=== PATIENT | male | born 1965 | race Asian ===

== ENCOUNTER 2022-10-25 12:27 | Inpatient (IN) | payer MEDICARE ==
[~2022-10-25] VITALS: Ht 170.2 cm; Wt 69.6 kg
[2022-10-25] MEDS ORDERED: APIX5TAB PO (12:31)
[2022-10-25] MEDS ORDERED: ISOS30TA92 PO (12:35)
[2022-10-25] MEDS ORDERED: FURO40 PO (12:35)
[2022-10-25] MEDS ORDERED: RANO500T27 PO (12:35)
[2022-10-25] MEDS ORDERED: CLOP75TA60 PO (12:35)
[2022-10-25] MEDS ORDERED: GLIP-102 PO (12:35)
[2022-10-25] MEDS ORDERED: ALLO-97 PO (12:35)
[2022-10-25] MEDS ORDERED: SODI650T33 PO (12:35)
[2022-10-25] MEDS ORDERED: METO-558 PO (12:35)
[2022-10-25] MEDS ORDERED: SENN-376 PO (12:35)
[2022-10-25] MEDS ORDERED: [UNRECOGNIZED DRUG - CODE] PO (12:36)
[2022-10-25] MEDS ORDERED: ROSU20TA73 PO (12:36)
[2022-10-25] MEDS ORDERED: CHOL25TA4 PO (12:36)
[2022-10-25] MEDS ORDERED: DOPamine 400MG/D5W[STANDARD] 250 ML IV PRN (12:45)
[2022-10-25] MEDS ORDERED: DOPamine 400MG/D5W[STANDARD] 250 ML IV ONE (12:47)
[2022-10-25 12:53] LABS: BASOPHILS % (AUTO) 0.9 % (0.0-2.0); EOSINOPHILS % (AUTO) 2.9 % (1.0-6.0); HEMATOCRIT 27.2 % (41-53); LYMPHOCYTES # (AUTO) 1.9 K/uL (1.0-4.8); LYMPHOCYTES % (AUTO) 24.2 % (22.0-44.0); MEAN CORPUSCULAR HEMOGLOBIN 28.6 pg (26.0-34.0); MEAN CORPUSCULAR VOLUME 87 fL (80-100); MONOCYTES # (AUTO) 0.5 K/uL (0.1-1.0); MONOCYTES % (AUTO) 6.7 % (2.0-9.0); NEUTROPHILS % (AUTO) 65.3 % (40.0-70.0); PLATELET COUNT (AUTO) 333 K/uL (150-450); RED BLOOD CELL COUNT(AUTO) 3.14 MIL/uL (4.50-5.90); RED CELL DISTRIBUTION WIDTH 14.1 % (11.5-14.5)
[2022-10-25 13:11] LABS: INR 1.1 (0.9-1.1); PROTHROMBIN TIME 11.3 SEC (9.4-11.6)
[2022-10-25 13:24] LABS: ALBUMIN 2.2 g/dL (3.4-5.0); BILIRUBIN,TOTAL 0.3 mg/dL (0.1-1.0); CALCIUM, TOTAL 7.2 mg/dL (8.8-10.5); CREATININE 8.38 mg/dL (0.60-1.30); TOTAL PROTEIN, SERUM 6.2 g/dL (6.4-8.2)
[2022-10-25] MEDS ORDERED: BISACODYL 10 MG RECTAL RECTAL SUPPOSITORY PR PRN (13:45)
[2022-10-25] MEDS ORDERED: CALCIUM GLUCONATE 1,000 MG in DEXTROSE 5%-WATER 50 ML IV ONE (13:45)
[2022-10-25] MEDS ORDERED: MORPHINE SULFATE 2 MG/ML SYRINGE IVP PRN (13:45)
[2022-10-25] MEDS ORDERED: ZOLPIDEM TARTRATE 5 MG TABLET PO PRN (13:45)
[2022-10-25] MEDS ORDERED: MAGNESIUM HYDROXIDE SUSPENSION 30 ML UDCUP PO PRN (13:45)
[2022-10-25] MEDS ORDERED: HYDROCODONE/ACETAMINOPHEN 5-325 MG TABLET PO PRN (13:45)
[2022-10-25] MEDS ORDERED: ONDANSETRON HCL 4 MG/2 ML VIAL IVP PRN (13:45)
[2022-10-25] MEDS ORDERED: ACETAMINOPHEN 325 MG TABLET PO PRN (13:45)
[2022-10-25] MEDS ORDERED: SODIUM ZIRCONIUM CYCLOSILICATE 5 GM POWDER PACKET PO ONE (14:00)
[2022-10-25] MEDS ORDERED: ALBUTEROL SULFATE 2.5 MG/0.5 ML NEB SOLUTION NEB ONE (14:00)
[2022-10-25] MEDS ORDERED: INSULIN REGULAR, HUMAN 100 UNITS/ML IVP ONE (14:00)
[2022-10-25] MEDS ORDERED: DEXTROSE 50%-WATER 25 GM/50 ML SYRINGE IVP ONE (14:00)
[2022-10-25] MEDS ORDERED: SODIUM BICARBONATE [ADULT] 8.4% 50 MEQ/50 ML SYRINGE IVP ONE (14:00)
[2022-10-25] MEDS ORDERED: FUROSEMIDE 40 MG/4 ML VIAL IVP ONE (14:00)
[2022-10-25 14:11] VITALS: PULSE 78; RESP 18; O2SAT 100
[2022-10-25 14:21] LABS: ALBUMIN 2.7 g/dL (3.4-5.0); BILIRUBIN,TOTAL 0.5 mg/dL (0.1-1.0); CALCIUM, TOTAL 7.8 mg/dL (8.8-10.5); CREATININE 7.94 mg/dL (0.60-1.30); TOTAL PROTEIN, SERUM 7.7 g/dL (6.4-8.2)
[2022-10-25 14:22] LABS: POTASSIUM 6.5 mmol/L (3.5-5.1)
[2022-10-25 14:24] VITALS: PULSE 79; RESP 18; O2SAT 100
[2022-10-25 14:42] LABS: GLUCOMETER DEV NAME(LOC) ER.6
[2022-10-25] MEDS ORDERED: CALC500T37 PO (14:44)
[2022-10-25] MEDS: HEPARIN SODIUM,PORCINE 5,000 UNITS/ML VIAL SQ SCH (16:03)
[2022-10-25 16:52] LABS: ALBUMIN 2.4 g/dL (3.4-5.0); BILIRUBIN,TOTAL 0.2 mg/dL (0.1-1.0); CALCIUM, TOTAL 7.7 mg/dL (8.8-10.5); CREATININE 8.23 mg/dL (0.60-1.30); POTASSIUM 5.7 mmol/L (3.5-5.1); TOTAL PROTEIN, SERUM 6.9 g/dL (6.4-8.2)
[2022-10-25 17:31] LABS: APPEARANCE,URINE CLEAR (CLEAR); BILIRUBIN,URINE NEGATIVE (NEGATIVE); GLUCOSE, URINE (UA) >=1000 mg/dL (NEGATIVE); KETONES,URINE NEGATIVE (NEGATIVE); LEUKOCYTE ESTERASE ,URINE NEGATIVE (NEGATIVE); NITRATE,URINE NEGATIVE (NEGATIVE); OCCULT BLOOD,URINE TRACE (NEGATIVE); PH,URINE 6.5 (5.0-8.0); PROTEIN,URINE 100-200,SEE CONFIRM mg/dL (NEGATIVE); SPECIFIC GRAVITIY, URINE 1.006 (1.003-1.030); UROBILINOGEN,URINE <=1.0 mg/dL (<=1.0)
[2022-10-25 17:53] LABS: SULFOSALICYLIC ACID,URINE 3+ (Negative)
[2022-10-25 17:54] LABS: BACTERIA,URINE None Seen /HPF (None Seen); WBC,URINE 0-2 /HPF (0-5)
[2022-10-25 17:55] LABS: RBC,URINE 0-2 /HPF (0-2)
[2022-10-25 20:00] VITALS: BP 157/82; PULSE 68; RESP 18; TEMP 98.4
[2022-10-25] MEDS: DOCUSATE SODIUM 100 MG CAPSULE PO SCH (20:33)
[2022-10-25] MEDS ORDERED: ROSUVASTATIN CALCIUM 20 MG TABLET PO SCH (21:00)
[2022-10-26] VITALS: BP 139/75; PULSE 65; RESP 18; TEMP 98.2
[2022-10-26 04:00] VITALS: BP 145/72; PULSE 65; RESP 18; TEMP 97.8
[2022-10-26 06:17] LABS: BASOPHILS % (AUTO) 0.7 % (0.0-2.0); HEMATOCRIT 25.8 % (41-53); HEMOGLOBIN 8.9 g/dL (13.5-17.5); LYMPHOCYTES # (AUTO) 1.2 K/uL (1.0-4.8); LYMPHOCYTES % (AUTO) 19.7 % (22.0-44.0); MEAN CORPUSCULAR HEMOGLOBIN 29.7 pg (26.0-34.0); MEAN CORPUSCULAR HGB CONC 34.6 G/dL (31.0-37.0); MEAN CORPUSCULAR VOLUME 86 fL (80-100); MONOCYTES # (AUTO) 0.7 K/uL (0.1-1.0); MONOCYTES % (AUTO) 11.2 % (2.0-9.0); NEUTROPHILS # (AUTO) 3.9 K/uL (1.8-7.7); NEUTROPHILS % (AUTO) 66.4 % (40.0-70.0); PLATELET COUNT (AUTO) 252 K/uL (150-450); RED CELL DISTRIBUTION WIDTH 13.9 % (11.5-14.5)
[2022-10-26 06:58] LABS: CALCIUM, TOTAL 7.1 mg/dL (8.8-10.5); CREATININE 8.28 mg/dL (0.60-1.30); POTASSIUM 4.1 mmol/L (3.5-5.1); THYROID STIMULATING HORMONE 1.14 uIU/mL (0.36-3.74)
[2022-10-26 08:00] VITALS: BP 140/63; PULSE 81; RESP 17; TEMP 98.6
[2022-10-26] MEDS: HEPARIN SODIUM,PORCINE 5,000 UNITS/ML VIAL SQ SCH ×2 (08:07)
[2022-10-26] MEDS: DOCUSATE SODIUM 100 MG CAPSULE PO SCH (08:08)
[2022-10-26] MEDS ORDERED: PANTOPRAZOLE SODIUM 40 MG DR TABLET PO SCH (09:00)
[2022-10-26] MEDS ORDERED: ALLOPURINOL 100 MG TABLET PO SCH (09:00)
[2022-10-26 12:00] VITALS: BP 159/86; PULSE 59; RESP 16; TEMP 98
[2022-10-26] MEDS ORDERED: SODI5POW3 PO (13:57)
[2022-10-26] MEDS ORDERED: AMLO-258 PO (13:57)
[2022-10-26] MEDS ORDERED: HYDR50TA36 PO (13:57)
== END 2022-10-26 14:56 | disposition home or self-care (01) | DRG 640 ==
LOC: EMS 12:28 → ICUN 13:47 → ICU 18:52
PROVIDERS: ADMIT Internal Medicine; ATTEND Internal Medicine
DX: E87.5 Hyperkalemia (principal); N18.6 End stage renal disease; N17.9 Acute kidney failure, unspecified; I50.22 Chronic systolic (congestive) heart failure; I13.2 Hypertensive heart and chronic kidney disease with heart failure and with stage 5 chronic kidney disease, or end stage renal disease; I48.20 Chronic atrial fibrillation, unspecified; R00.1 Bradycardia, unspecified; E87.1 Hypo-osmolality and hyponatremia; I95.9 Hypotension, unspecified; I25.5 Ischemic cardiomyopathy; E11.22 Type 2 diabetes mellitus with diabetic chronic kidney disease; E78.5 Hyperlipidemia, unspecified; E11.319 Type 2 diabetes mellitus with unspecified diabetic retinopathy without macular edema; E11.40 Type 2 diabetes mellitus with diabetic neuropathy, unspecified; D64.9 Anemia, unspecified; E88.09 Other disorders of plasma-protein metabolism, not elsewhere classified; I25.10 Atherosclerotic heart disease of native coronary artery without angina pectoris; Z95.1 Presence of aortocoronary bypass graft; Z88.8 Allergy status to other drugs, medicaments and biological substances; Z79.01 Long term (current) use of anticoagulants; Z79.84 Long term (current) use of oral hypoglycemic drugs; Z79.899 Other long term (current) drug therapy
CPT/HCPCS: 71045; 80048; 80053; 81001; 81002; 81003; 82550; 82962; 83880; 84443; 84484; 85025; 85610; 85730; 87081; 93005; 93306; 94640; 99291; G0378; J0610; J1265; J1644; J1815; J1940; J3490; J7060; Q9967; 36415-L1; 36415-TC; J7613